=== PATIENT | female | born 1990 | race Caucasian/White ===

== ENCOUNTER 2022-04-22 13:42 | Emergency (ER) | payer MEDICAID ==
[~2022-04-22] VITALS: Ht 165.1 cm; Wt 75.0 kg
[~2022-04-22 13:42] MED LIST: CEPH500T MT
[2022-04-22 13:58] VITALS: BP 125/78
[2022-04-22] MEDS ORDERED: ACETAMINOPHEN 325MG TABLET PO ONE (16:30)
[2022-04-22] MEDS ORDERED: ACET-2708 MT (16:39)
== END 2022-04-22 17:18 | disposition home or self-care (01) ==
LOC: ER 14:04
DX: B34.9 Viral infection, unspecified (principal); Z88.0 Allergy status to penicillin
CPT/HCPCS: 81025; 99282

== ENCOUNTER 2022-04-24 14:24 | Emergency (ER) | payer MEDICAID ==
[~2022-04-24] VITALS: Ht 162.6 cm; Wt 68.0 kg
[~2022-04-24 14:24] MED LIST changes: +ACET-2708 MT
[2022-04-24 14:40] VITALS: BP 140/86
== END 2022-04-24 20:18 | disposition home or self-care (01) ==
LOC: ER 14:24
DX: U07.1 COVID-19 (principal); Z88.0 Allergy status to penicillin
CPT/HCPCS: 71045; 93005; 99283